=== PATIENT | female | born 1970 | race Caucasian/White ===

== ENCOUNTER → 2018-02-05 | Outpatient (CLI) | payer OTHER | LOC: RAD 09:29 | DX: K21.9 Gastro-esophageal reflux disease without esophagitis (principal) ==

== ENCOUNTER → 2018-03-06 | Outpatient (CLI) | payer OTHER ==
[~2018-03-06] VITALS: Ht 167.6 cm; Wt 71.2 kg
[~2018-03-06] MED LIST: CRESTOR10 MG PO; PEPCID20 MG PO; PROAIR HFA8.5 GM INH; PROTONIX40 M1 PO; PROZAC20 MG PO
--- NOTE | ~2018-03-06 | O ---
[facility] [place] [address] OPERATIVE REPORT Name: EVELYN HUANG Room #: REG [facility].#: [id number] Admission: 03/06/18 Attend Phys: Renae Hill MD, Discharge: Date of : 70 Report #: [id number] THIS REPORT FOR: //name// CC: Ermelinda Hill DATE OF SERVICE: 03/06/2018 PREOPERATIVE DIAGNOSIS: Gastroesophageal reflux disease. POSTOPERATIVE DIAGNOSES: 1. Gastroesophageal reflux disease. 2. Hiatal hernia. PROCEDURE PERFORMED: Thorough esophagogastroduodenoscopy (EGD). SURGEON: Renae Hill M.D. COMPENSATION INTERN: None. ANESTHESIA: Monitored anesthesia care. ESTIMATED BLOOD LOSS: None. COMPLICATIONS: None. SPECIMENS: None. INDICATIONS: The patient is a 48-year-old female who presented with significant ongoing medically recalcitrant reflux disease. Indication was for upper endoscopy for full evaluation today. DESCRIPTION OF PROCEDURE: After explaining the risks, benefits, alternatives of the procedure with the patient in detail and obtaining consent, the patient was brought to the endoscopy suite and placed supine on her hospital bed. After conducting a thorough timeout procedure verifying correct patient and procedure, the patient was given monitored anesthesia care. Once adequate anesthesia was obtained, the [employer] upper endoscope was used to intubate the oropharynx, was traversed down into the esophagus with ease. The gastric lumen was intubated and pylorus was identified and I advanced the scope to the second portion of the duodenum. Slow and careful withdrawal of the scope showed no evidence of duodenitis, gastritis, esophagitis, mass lesions or ulcerations. A retroflexion view of the scope within the gastric lumen showed a small hiatal hernia. No other pathologic findings were identified. The stomach was fully desufflated. The scope was removed and passed off the field completing the procedure. At the end of the procedure, all instrument, needle and sponge counts were correct. [facility] [address] [place] [address] OPERATIVE REPORT Name: EVELYN HUANG Room #: REG [facility]#: [id number] Admission: 03/06/18 Attend Phys: Renae Hill MD, Discharge: Date of : 70 Report #: [id number] The patient tolerated the procedure without incident, was awakened in the endoscopy suite and transitioned to the recovery room in stable condition with no apparent complications. <ELECTRONICALLY SIGNED> By: Renae Hill MD, FACS 03/07/18 [id number] Renae Hill MD, FACS /nt
== END | disposition home or self-care (01) ==
LOC: GI 06:34
DX: K21.9 Gastro-esophageal reflux disease without esophagitis (principal); K44.9 Diaphragmatic hernia without obstruction or gangrene; F41.9 Anxiety disorder, unspecified; F32.9 Major depressive disorder, single episode, unspecified; E78.5 Hyperlipidemia, unspecified; J45.909 Unspecified asthma, uncomplicated; Z90.89 Acquired absence of other organs; Z88.0 Allergy status to penicillin; Z88.8 Allergy status to other drugs, medicaments and biological substances; Z79.51 Long term (current) use of inhaled steroids; Z79.899 Other long term (current) drug therapy; Z87.891 Personal history of nicotine dependence; Z98.818 Other dental procedure status; Z98.890 Other specified postprocedural states
CPT/HCPCS: 62110; 62900

== ENCOUNTER 2018-05-09 20:27 | Emergency (ER) | payer OTHER ==
[~2018-05-09] VITALS: Ht 165.1 cm; Wt 73.6 kg
[2018-05-09 21:04] LABS: URINE BILIRUBIN NEGATIVE (Negative); URINE BLOOD TRACE (Negative); URINE CLARITY CLEAR; URINE COLOR YELLOW; URINE GLUCOSE-RANDOM* NEGATIVE (Negative); URINE KETONES TRACE (Negative); URINE LEUKOCYTES-REFLEX NEGATIVE (Negative); URINE NITRITE-REFLEX NEGATIVE (Negative); URINE PROTEIN (DIPSTICK) NEGATIVE (Negative); URINE SPECIFIC GRAVITY >= 1.030 (1.005-1.035)
[2018-05-09] MEDS ORDERED: ZOFRAN ODT4 M1 PO (21:28)
== END 2018-05-09 23:10 | disposition home or self-care (01) ==
LOC: ER 20:27
PROVIDERS: Emergency Medicine
DX: K22.4 Dyskinesia of esophagus (principal); R10.13 Epigastric pain; R11.10 Vomiting, unspecified; K21.9 Gastro-esophageal reflux disease without esophagitis; J45.909 Unspecified asthma, uncomplicated; E78.5 Hyperlipidemia, unspecified; Z88.0 Allergy status to penicillin; Z88.6 Allergy status to analgesic agent

== ENCOUNTER → 2018-08-31 | Outpatient (CLI) | payer OTHER ==
[~2018-08-31] MED LIST changes: +ZOFRAN ODT4 M1 PO
== END ==
LOC: RAD 08:33
DX: K21.9 Gastro-esophageal reflux disease without esophagitis (principal)